=== PATIENT | female | born 1940 | race Caucasian/White ===

== ENCOUNTER → 2016-04-07 | Outpatient (CLI) | payer OTHER, MEDICARE | LOC: BMCIMAGING 12:02 | PROVIDERS: ATTEND Internal Medicine Cardiovascular Disease | DX: I48.91 Unspecified atrial fibrillation (principal); R91.8 Other nonspecific abnormal finding of lung field; I51.7 Cardiomegaly; I27.2 Other secondary pulmonary hypertension; I70.8 Atherosclerosis of other arteries ==

== ENCOUNTER → 2016-05-01 | Outpatient (CLI) | payer OTHER, MEDICARE | LOC: FIMAGING 15:27 | PROVIDERS: ATTEND Internal Medicine Cardiovascular Disease | DX: J94.1 Fibrothorax (principal); I25.10 Atherosclerotic heart disease of native coronary artery without angina pectoris; K80.20 Calculus of gallbladder without cholecystitis without obstruction; N28.1 Cyst of kidney, acquired ==

== ENCOUNTER → 2016-05-05 | Outpatient (CLI) | payer OTHER, MEDICARE | LOC: BHFA 13:00 | PROVIDERS: ATTEND Internal Medicine Cardiovascular Disease | DX: I48.91 Unspecified atrial fibrillation (principal); Z79.899 Other long term (current) drug therapy ==

== ENCOUNTER → 2016-06-04 | Outpatient (CLI) | payer OTHER, MEDICARE | LOC: BHFA 11:00 | PROVIDERS: ATTEND Internal Medicine Cardiovascular Disease | DX: Z79.899 Other long term (current) drug therapy (principal) ==

== ENCOUNTER → 2016-08-05 | Outpatient (CLI) | payer OTHER, MEDICARE | LOC: BHFA 11:00 | PROVIDERS: ATTEND Internal Medicine Cardiovascular Disease | DX: Z79.899 Other long term (current) drug therapy (principal) ==

== ENCOUNTER → 2016-09-07 | Outpatient (CLI) | payer OTHER, MEDICARE | LOC: FIMAGING 16:34 | DX: R22.41 Localized swelling, mass and lump, right lower limb (principal) ==

== ENCOUNTER → 2017-01-18 | Outpatient (CLI) | payer OTHER, MEDICARE | LOC: BHFA 10:45 | PROVIDERS: ATTEND Internal Medicine Cardiovascular Disease | DX: R01.1 Cardiac murmur, unspecified (principal) ==

== ENCOUNTER → 2017-02-01 | Outpatient (CLI) | payer OTHER, MEDICARE | LOC: FIMAGING 14:08 | PROVIDERS: ATTEND Internal Medicine Cardiovascular Disease | DX: S00.03XA Contusion of scalp, initial encounter (principal); W19.XXXA Unspecified fall, initial encounter; I48.91 Unspecified atrial fibrillation; I25.10 Atherosclerotic heart disease of native coronary artery without angina pectoris ==

== ENCOUNTER → 2017-03-18 | Outpatient (CLI) | payer OTHER, MEDICARE | LOC: BMCIMAGING 11:25 | PROVIDERS: ATTEND Physician Assistant Medical | DX: I50.9 Heart failure, unspecified (principal); I48.0 Paroxysmal atrial fibrillation; I10 Essential (primary) hypertension; Z79.899 Other long term (current) drug therapy ==

== ENCOUNTER → 2017-08-30 | Outpatient (CLI) | payer OTHER, MEDICARE | LOC: BHFA 10:00 | PROVIDERS: ATTEND Internal Medicine | DX: I48.91 Unspecified atrial fibrillation (principal); I10 Essential (primary) hypertension; I25.10 Atherosclerotic heart disease of native coronary artery without angina pectoris; Z79.899 Other long term (current) drug therapy ==

== ENCOUNTER → 2017-12-14 | Outpatient (CLI) | payer OTHER, MEDICARE | LOC: FIMAGING 18:53 | PROVIDERS: ATTEND Ophthalmology Pediatric Ophthalmology and Strabismus Specialist | DX: H54.7 Unspecified visual loss (principal) ==

== ENCOUNTER 2018-04-13 18:27 | Emergency (ER) | payer OTHER, MEDICARE ==
[2018-04-13] MEDS ORDERED: NS 1,000 ML IV ONE (18:51)
--- NOTE | 2018-04-13 19:14 | EDPHY ---
H & P Stated Complaint: lower abd pain nausea/diarrhea Source: Patient Exam Limitations: No limitations - Personal History Current Tetanus Diphtheria and Acellular Pertussis (TDAP): Yes - Medical/Surgical History Hx Asthma: No Hx Chronic Respiratory Disease: No Hx Diabetes: No Hx Cardiac Disease: Yes Hx Renal Disease: No Hx Cirrhosis: No Hx Alcoholism: No Hx HIV/AIDS: No Hx Splenectomy or Spleen Trauma: No Other PMH: htn afib/hernited disc - Social History Smoking Status: Never smoked <Emerson Bansal - Last Filed: 04/13/18 21:14> <Flaco De Jesus - Last Filed: 04/13/18 21:57> Time Seen by Provider: 04/13/18 18:50 HPI/ROS: CHIEF COMPLAINT: Abdominal pain HISTORY OF PRESENT ILLNESS: The patient is referred to the emergency department for abdominal pain. The patient developed symptoms of constipation over the weekend and took a laxative. This resulted in diarrhea and crampy lower abdominal pain. Over the past day the patient has had fever and chills and nausea. The patient was seen by her primary care provider today who appreciated right upper quadrant tenderness and right mid quadrant tenderness and sent her to the ED for further evaluation. The patient denies any hematuria or dysuria. She denies additional acute complaints. REVIEW OF SYSTEMS: A comprehensive 10 point review of systems is otherwise negative aside from elements mentioned in the history of present illness. (Emerson Bansal) - Physical Exam Exam: General Appearance: Alert, no distress Eyes: Pupils equal and round no pallor or injection ENT, Mouth: Mucous membranes moist Respiratory: There are no retractions, lungs are clear to auscultation Cardiovascular: Regular rate and rhythm Gastrointestinal: Tenderness to palpation right upper quadrant, normal bowel sounds, mild right mid quadrant tenderness Neurological: 5/5 strength all 4 extremities Skin: Warm and dry, no rashes Musculoskeletal: Neck is supple nontender Extremities: symmetrical, full range of motion Psychiatric: Patient is oriented X 3, there is no agitation (Emerson Bansal) Constitutional: Initial Vital Signs Temperature (C) 37 C 04/13/18 18:42 Heart Rate 73 04/13/18 18:42 Respiratory Rate 18 04/13/18 18:42 Blood Pressure 107/72 04/13/18 18:42 O2 Sat (%) 94 04/13/18 18:42 O2 Delivery Mode Room Air Allergies/Adverse Reactions: amlodipine [From [facility]] Allergy (Verified 04/13/18 18:41) Home Medications: Medication Instructions Recorded Atorvastatin Calcium 04/13/18 Benazepril HCl 04/13/18 Cephalexin [Keflex] 500 mg PO TID #21 cap 04/13/18 Clonidine 04/13/18 Escitalopram Oxalate 04/13/18 Hydrochlorothiazide 04/13/18 Levothyroxine 04/13/18 Lumigan 0.01% (*) 04/13/18 Minoxidil 04/13/18 Xarelto 04/13/18 Medical Decision Making <Emerson Bansal - Last Filed: 04/13/18 21:14> - Diagnostics Imaging: Discussed imaging studies w/ financial aid administrator Radiologist <Flaco De Jesus - Last Filed: 04/13/18 21:57> - Diagnostics Imaging Results: Imaging Impressions Abdomen Ultrasound 04/13/18 19:12 Impression: 1. Negative for cholelithiasis. 2. Query hepatic steatosis. 3. Multiple right renal cysts are noted. 4. See above report for additional findings. Results called and discussed with Emerson Bansal M.D. on 04/13/2018 at 20:25. ED Course/Re-evaluation: Patient presents the ED for abdominal discomfort, early satiety and nausea. Patient did have tenderness to palpation in the right upper quadrant. Right upper quadrant ultrasound is negative for cholecystitis. Patient has no fever, leukocytosis, abnormal liver function tests and has a normal metabolic panel. The patient is noted to have a scant amount of pyuria. She has chronic renal failure. A CT scan of the abdomen pelvis without contrast was ordered for further evaluation of her symptoms. 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 Her noncontrast abdominal CT scan appear stable per her daughter's impression. We did offer the patient [facility] given the uncertainty surrounding her mild abdominal discomfort however she prefers to go home. The patient did received ceftriaxone will be discharged home with Keflex. She understands return to the ED for markedly worsening symptoms or other concerns. (Emerson Bansal) 9:40 p.m. We discussed the CT results. Patient and daughter are reassured. Patient is very eager to go home. She has finished her Rocephin and has a prescription. We discussed indications for returning. (Flaco De Jesus) Differential Diagnosis: Differential diagnosis considered includes peptic ulcer disease, cholecystitis, pancreatitis, pyelonephritis, appendicitis (Emerson Bansal) - Data Points Laboratory Results: Laboratory Results 04/13/18 19:00 04/13/18 19:00 04/13/18 04/13/18 04/13/18 20:00 19:07 19:00 WBC RBC Hgb POC Hgb 12.2 gm/dL L gm/dL (12.6-16.3) Hct POC Hct 36 % L % (38-47) MCV MCH MCHC RDW Plt Count MPV Neut % (Auto) Lymph % (Auto) [place] % (Auto) Eos % (Auto) Baso % (Auto) Nucleat RBC Rel Count Absolute Neuts (auto) Absolute Lymphs (auto) Absolute Monos (auto) Absolute Eos (auto) Absolute Basos (auto) Absolute Nucleated RBC Immature Gran % Immature Gran # POC Sodium 141 mEq/L mEq/L (135-145) Sodium 138 mEq/L mEq/L (135-145) POC Potassium 3.5 mEq/L mEq/L (3.3-5.0) Potassium 3.8 mEq/L mEq/L (3.5-5.2) POC Chloride 104 mEq/L mEq/L (97-110) Chloride 105 mEq/L mEq/L (97-110) Carbon Dioxide 24 mEq/l mEq/l (22-31) POC Total CO2 23 mEq/L mEq/L (22-31) Anion Gap 9 mEq/L mEq/L (6-14) POC BUN 32 mg/dL H mg/dL (7-23) BUN 38 mg/dL H mg/dL (7-23) Creatinine 1.8 mg/dL H mg/dL (0.6-1.0) POC Creatinine 1.9 mg/dL H mg/dL (0.6-1.0) Estimated GFR 27 Glucose 91 mg/dL mg/dL (70-100) POC Glucose 91 mg/dL mg/dL (70-100) Calcium 9.8 mg/dL mg/dL (8.5-10.4) Total Bilirubin 0.7 mg/dL mg/dL (0.1-1.4) Conjugated Bilirubin 0.4 mg/dL mg/dL (0.0-0.5) Unconjugated Bilirubin 0.3 mg/dL mg/dL (0.0-1.1) AST 22 IU/L IU/L (14-46) ALT 23 IU/L IU/L (9-52) Alkaline Phosphatase 79 IU/L IU/L (38-126) Total Protein 7.4 g/dL g/dL (6.3-8.2) Albumin 4.3 g/dL g/dL (3.5-5.0) Lipase 225 IU/L IU/L (23-300) Urine Color PALE YELLOW Urine Appearance CLEAR Urine pH 5.0 (5.0-7.5) Ur Specific [place] 1.004 (1.002-1.030) Urine Protein NEGATIVE (NEGATIVE) Urine Ketones NEGATIVE (NEGATIVE) Urine Blood 2+ H (NEGATIVE) Urine Nitrate NEGATIVE (NEGATIVE) Urine Bilirubin NEGATIVE (NEGATIVE) Urine Urobilinogen NEGATIVE EU EU (0.2-1.0) Ur Leukocyte Esterase 1+ H (NEGATIVE) Urine RBC 1-3 /hpf /hpf (0-3) Urine WBC 5-10 /hpf H /hpf (0-3) Ur Epithelial Cells TRACE /lpf /lpf (NONE-1+) Urine Mucus TRACE /lpf /lpf (NONE-1+) Urine Glucose NEGATIVE (NEGATIVE) 04/13/18 19:00 WBC 4.25 10^3/uL 10^3/uL (3.80-9.50) RBC 3.80 10^6/uL L 10^6/uL (4.18-5.33) Hgb 11.4 g/dL L g/dL (12.6-16.3) POC Hgb Hct 34.4 % L % (38.0-47.0) POC Hct MCV 90.5 fL fL (81.5-99.8) MCH 30.0 pg pg (27.9-34.1) MCHC 33.1 g/dL g/dL (32.4-36.7) RDW 13.3 % % (11.5-15.2) Plt Count 168 10^3/uL 10^3/uL (150-400) MPV 11.6 fL fL (8.7-11.7) Neut % (Auto) 53.4 % % (39.3-74.2) Lymph % (Auto) 34.4 % % (15.0-45.0) [place] % (Auto) 10.1 % % (4.5-13.0) Eos % (Auto) 0.7 % % (0.6-7.6) Baso % (Auto) 1.2 % % (0.3-1.7) Nucleat RBC Rel Count 0.0 % % (0.0-0.2) Absolute Neuts (auto) 2.27 10^3/uL 10^3/uL (1.70-6.50) Absolute Lymphs (auto) 1.46 10^3/uL 10^3/uL (1.00-3.00) Absolute Monos (auto) 0.43 10^3/uL 10^3/uL (0.30-0.80) Absolute Eos (auto) 0.03 10^3/uL 10^3/uL (0.03-0.40) Absolute Basos (auto) 0.05 10^3/uL 10^3/uL (0.02-0.10) Absolute Nucleated RBC 0.00 10^3/uL 10^3/uL (0-0.01) Immature Gran % 0.2 % % (0.0-1.1) Immature Gran # 0.01 10^3/uL 10^3/uL (0.00-0.10) POC Sodium Sodium POC Potassium Potassium POC Chloride Chloride Carbon Dioxide POC Total CO2 Anion Gap POC BUN BUN Creatinine POC Creatinine Estimated GFR Glucose POC Glucose Calcium Total Bilirubin Conjugated Bilirubin Unconjugated Bilirubin AST ALT Alkaline Phosphatase Total Protein Albumin Lipase Urine Color Urine Appearance Urine pH Ur Specific [place] Urine Protein Urine Ketones Urine Blood Urine Nitrate Urine Bilirubin Urine Urobilinogen Ur Leukocyte Esterase Urine RBC Urine WBC Ur Epithelial Cells Urine Mucus Urine Glucose Medications Given: Discontinued Medications Sodium Chloride (Ns) 1,000 mls @ 0 mls/hr IV EDNOW ONE; Wide Open PRN Reason: Protocol Stop: 04/13/18 18:52 Last Admin: 04/13/18 18:59 Dose: 1,000 mls Ceftriaxone Sodium/Dextrose (Rocephin 1 Gm (Premix)) 50 mls @ 100 mls/hr IV EDNOW ONE PRN Reason: Protocol Stop: 04/13/18 21:22 Last Admin: 04/13/18 20:57 Dose: 50 mls Point of Care Test Results: Chemistry 04/13/18 19:07 POC Sodium 141 mEq/L mEq/L (135-145) POC Potassium 3.5 mEq/L mEq/L (3.3-5.0) POC Chloride 104 mEq/L mEq/L (97-110) POC Total CO2 23 mEq/L mEq/L (22-31) POC BUN 32 mg/dL H mg/dL (7-23) POC Creatinine 1.9 mg/dL H mg/dL (0.6-1.0) POC Glucose 91 mg/dL mg/dL (70-100) ISTAT H&H 04/13/18 19:07 POC Hgb 12.2 gm/dL L gm/dL (12.6-16.3) POC Hct 36 % L % (38-47) Departure <Emerson Bansal - Last Filed: 04/13/18 21:14> <Flaco De Jesus - Last Filed: 04/13/18 21:57> - Departure Disposition: Home, Routine, Self-Care Clinical Impression: Abdominal pain Condition: Good Instructions: Acute Abdominal Pain (ED) Additional Instructions: Sometimes we are unable to diagnose an obvious cause of abdominal pain in the Emergency Department. Based upon our evaluation today, I have no obvious explanation for your pain aside from the possibility of a bladder infection. We are starting you on antibiotics and obtaining a urine culture.. Because more serious conditions can be difficult to diagnose early in the course of their presentation, we ask that you return to the Emergency Department in 8-12 hours for a recheck if you are still having pain. This is necessary to exclude the development of a more serious condition such as appendicitis or other intra- abdominal emergency. In the event your pain markedly increases before that time or you develop intractable vomiting or fever return to the Emergency Department immediately. Take antibiotics as directed. Return to the ED immediately for markedly worsening symptoms. Please have Dr. Levi check the results of the urine culture in the next 1- 2 days. Referrals: Lazaro Levi MD [Primary Care Provider] - As per Instructions Prescriptions: Cephalexin [Keflex] 500 mg PO TID #21 cap
[2018-04-13 19:18] LABS: PLATELET COUNT 168 10^3/uL (150-400)
[2018-04-13 22:06] VITALS: BP 128/70
== END 2018-04-13 22:06 | disposition home or self-care (01) ==
DX: R10.30 Lower abdominal pain, unspecified (principal); R19.7 Diarrhea, unspecified; R11.0 Nausea; E86.9 Volume depletion, unspecified
CPT/HCPCS: 74176; 76705; 96361; 96365; 99285; J0696; 82435-PO; 82565-PO; 82947-PO; 84132-PO; 84295-PO; 84520-PO; 85014-ER

== ENCOUNTER 2018-07-14 13:55 | Emergency (ER) | payer OTHER, MEDICARE ==
--- NOTE | 2018-07-14 15:22 | EDPHY ---
H & P Time Seen by Provider: 07/14/18 14:55 HPI/ROS: CHIEF COMPLAINT: Leg pain HISTORY OF PRESENT ILLNESS: Patient is a 77-year-old female who presents emergency department with left leg pain. Patient states her symptoms started while sleeping between Wednesday and Wednesday. The patient states "I am on a statin and have to stretch frequently." This is because she gets leg cramps. The patient stretched her left leg in developed anterior thigh pain. The pain has persisted and subsequently worsened. She now feels the pain in the posterior aspect of her leg radiating down to her left ankle. It is not worse with movement. It is tender to touch. Patient denies any fevers or chills. No chest pain or cough. The patient currently takes Eliquis. She has not missed a dose. REVIEW OF SYSTEMS: 10 systems were reveiwed and are negative with the exception of the elements mentioned in the history of present illness. Past Medical/Surgical History: Includes atrial fibrillation, hypertension, disc herniation Social history: Patient does not smoke Smoking Status: Never smoked Physical Exam: Vitals noted GENERAL: Well-appearing, in no acute distress, alert. HEENT: Eyes normal to inspection, normal pharynx, no signs of dehydration. NECK: Normal, supple. RESPIRATORY: Clear to auscultation bilaterally, no rales, rhonchi or wheezing. CVS: Regular rate and rhythm, no rubs, murmurs, or gallops. ABDOMEN: Soft, nontender, nondistended, no organomegaly. BACK: Normal to inspection, no CVA tenderness. SKIN: Normal color, no rash, warm, dry. No pallor. EXTREMITIES: Patient has mild swelling of her right lower extremity. She states this is baseline and unchanged. She has no tenderness to palpation or cords in her light lower extremity. Patient's left lower extremity quadriceps is mildly tender to touch. There is no surrounding warmth erythema. No palpable mass. The compartment is soft. Patient has no popliteal mass. No cords or Homans sign on the left side. Patient has minimal left ankle edema on the left. Neurovascular intact distally in both extremities. NEURO/PSYCH: Alert and oriented, normal mood and affect, normal motor sensory exam. No obvious cranial nerve deficit. Constitutional: Initial Vital Signs Temperature (C) 36.7 C 07/14/18 14:00 Heart Rate 84 07/14/18 14:00 Respiratory Rate 18 07/14/18 14:00 Blood Pressure 167/70 H 07/14/18 14:00 O2 Sat (%) 96 07/14/18 14:00 O2 Delivery Mode Room Air Allergies/Adverse Reactions: amlodipine [From [facility]] Allergy (Verified 07/14/18 13:57) Home Medications: Medication Instructions Recorded Atorvastatin Calcium 04/13/18 Benazepril HCl 04/13/18 Clonidine 04/13/18 Escitalopram Oxalate 04/13/18 Hydrochlorothiazide 04/13/18 Levothyroxine 04/13/18 Lumigan 0.01% (*) 04/13/18 Minoxidil 04/13/18 Xarelto 04/13/18 Cyclobenzaprine [Flexeril] 5 mg PO TID #15 tab 07/14/18 Medical Decision Making - Diagnostics Imaging Results: Imaging Impressions Extremity Venous Study 07/14/18 15:22 Impression: 1. Left Link's cyst. 2. No deep venous thrombosis left leg. Findings and recommendations discussed with Emergency Department physician, ARLENE DAY at 16:15 hour, 07/14/2018. Final report concurs with initial preliminary interpretation. Femur X-Ray 07/14/18 15:22 Impression: 1. Degenerative changes about the left hip and left knee. 2. No underlying osseous abnormality seen left femur. ED Course/Re-evaluation: In the emergency department I discussed possible etiologies with the patient. Answered all her questions. An ultrasound of her left lower extremity was ordered. X-ray of her left thigh was ordered. Femur x-ray: No acute disease noted Ultrasound: Please refer the dictated report. No DVT. Link cyst. I discussed the results with the patient. I answered all her questions. On recheck she was neurovascular intact distally. Her exam is unchanged. Patient was given warnings prior to leaving. She will return worsening symptoms. She was given a prescription of Flexeril. Differential Diagnosis: My differential includes but is not limited to muscle spasm, muscle strain, DVT , arterial occlusion, compartment syndrome, tumor, mass Departure - Departure Disposition: Home, Routine, Self-Care Clinical Impression: Leg pain, left Condition: Good Instructions: Leg Pain (ED) Additional Instructions: Return with increasing pain, swelling, fever, shortness of breath or any other concerns. Referrals: Lazaro Levi MD [Primary Care Provider] - 1-2 days without fail Prescriptions: Cyclobenzaprine [Flexeril] 5 mg PO TID #15 tab
[2018-07-14 16:30] VITALS: BP 114/70
== END 2018-07-14 16:29 | disposition home or self-care (01) ==
DX: M17.12 Unilateral primary osteoarthritis, left knee (principal); M71.22 Synovial cyst of popliteal space [Baker], left knee; M16.12 Unilateral primary osteoarthritis, left hip; I10 Essential (primary) hypertension; I48.91 Unspecified atrial fibrillation